=== PATIENT | female | born 1985 | race Caucasian/White ===

== ENCOUNTER 2017-03-07 22:10 | Inpatient (IN) | payer OTHER ==
[2017-03-07 23:11] LABS: BASOPHIL 0.4 % (0-2.0); EOSINOPHIL 0.3 % (0-4.5); MCH 31.2 pg (25.7-33.7); MCHC 33.8 g/dl (32.0-36.0); MEAN CELL VOLUME 92.6 fl (80-96); MEAN PLT VOLUME 10.2 fl (7.5-11.1); NEUTROPHILS 75.1 % (42.8-82.8); PLATELET COUNT 156 K/MM3 (134-434); RDW 15.3 % (11.6-15.6); WHITE BLOOD COUNT 9.8 K/mm3 (4.0-10.0)
[2017-03-07 23:17] VITALS: BMI 29.1
--- NOTE | 2017-03-07 23:21 | HP ---
Past Medical History - Admission Chief Complaint: Labor pain History of Present Illness: 31 yo @ 39 weeks gestation, EDC 03/10/17, presents to L&D c/o labor pain. She denies any vaginal bleeding nor rupture of membrane. History Source: Patient Limitations to Obtaining History: No Limitations - Past Medical History ...Para: 1 ...EDC by Carmen: 03/10/17 - Past Surgical History Past Surgical History: Yes: None Hx Myomectomy: No Hx Transabdominal Cerclage: No - Smoking History Smoking history: Former smoker Have you smoked in the past 12 months: Yes Aproximately how many cigarettes per day: 4 - Alcohol/Substance Use Hx Alcohol Use: No - Social History Usual Living Arrangement: Yes: With Spouse History of Recent Travel: No Home Medications - Allergies Allergies/Adverse Reactions: Allergies Allergy/AdvReac Type Severity Reaction Status Date / Time No Known Allergies Allergy Verified 07/12/16 16:26 - Home Medications Home Medications: Ambulatory Orders Ibuprofen [Motrin -] 600 mg PO TID PRN #21 tablet 07/06/16 Nitrofurantoin Monohyd/M-Cryst [Macrobid -] 100 mg PO BID #14 capsule 07/12/16 Family Disease History - Family Disease History Family History: Unremarkable Review of Systems - Review of Systems Constitutional: reports: No Symptoms Eyes: reports: No Symptoms HENT: reports: No Symptoms Neck: reports: No Symptoms Cardiovascular: reports: No Symptoms Respiratory: reports: No Symptoms Gastrointestinal: reports: No Symptoms Genitourinary: reports: Pain Breasts: reports: No Symptoms Reported Musculoskeletal: reports: No Symptoms Integumentary: reports: No Symptoms Neurological: reports: No Symptoms Endocrine: reports: No Symptoms Hematology/Lymphatic: reports: No Symptoms Psychiatric: reports: No Symptoms Pain Intensity: 8 Physical Exam - Maternity Vital Signs: Vital Signs Temperature Pulse Rate 82 03/07/17 23:00 Respiratory Rate 20 03/07/17 23:00 Blood Pressure 142/81 03/07/17 23:00 O2 Sat by Pulse Oximetry (%) Constitutional: Yes: Well Nourished Eyes: Yes: Conjunctiva Clear HENT: Yes: Atraumatic Neck: Yes: Supple, Trachea Midline Cardiovascular: Yes: Regular Rate and Rhythm Lungs: Clear to auscultation - Abdominal Exam/OB Number of Fetuses: Single Presentation: Vertex - Vaginal Exam/OB Dilatation (cm): 4 Effacement (%): 80 Station: -2 - Physical Exam ...Motor Strength: WNL Psychiatric: Yes: Alert, Oriented Problem List - Problems (1) Pain during labor Code(s): O99.89 - OTH DISEASES AND CONDITIONS COMPL PREG/CHLDBRTH R52 - PAIN, UNSPECIFIED Assessment/Plan Active labor IUP @ term Admit to L&D Anticipate
[2017-03-07 23:31] LABS: ACTIVATED PTT 26.9 SECONDS (26.9-34.4)
[2017-03-07] MEDS: ELECTROLYTE-148 SOLN 1,000 ML IV SCH (23:45)
[2017-03-07 23:48] LABS: ANION GAP 13 (8-16); CALCIUM 9.3 mg/dL (8.5-10.1); CO2 20 mmol/L (21-32); CREATININE 0.9 mg/dL (0.55-1.02); GLUCOSE,RANDOM 88 mg/dL (74-106)
[2017-03-08] MEDS: FENTANYL/BUPIVACAINE/NS/PF - PCEA - 50 ML DISP.SYRIN EP SCH (01:00)
[2017-03-08] MEDS ORDERED: WITCH HAZEL 50% (TUCKS) 40 PAD/JAR PAD TP PRN (03:46)
[2017-03-08] MEDS ORDERED: BENZOCAINE 20% 57 GM BOTTLE TP PRN (03:46)
[2017-03-08] MEDS ORDERED: BISACODYL 10 MG SUPP.RECT RC PRN (03:46)
[2017-03-08] MEDS ORDERED: BENZOCAINE 28 GM HEMORRHOIDAL OINTMENT TP PRN (03:46)
[2017-03-08] MEDS ORDERED: METHYLERGONOVINE MALEATE 0.2 MG/1 ML AMP IM PRN (03:46)
--- NOTE | 2017-03-08 03:48 | PN ---
Delivery - Delivery Vaginal Delivery: Spontaneous Type of Anesthesia: Epidural Episiotomy/Laceration: None EBL (cc): 300 Delivery, Single - Feeding Plan Initial Plan: Elected not to breastfeed exclusively throughout hospitalization Remarks - Remarks Remarks: Normal spontaneous vaginal delivery of a live infant boy over intact perineum. Nose / oropharynx suction @ perineum. Cord clamped and cut Placenta expelled spontaneously intact
--- NOTE | 2017-03-08 03:51 | DS ---
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: Vital Signs Temperature 98.2 F 03/08/17 02:00 Pulse Rate 90 03/08/17 01:30 Respiratory Rate 20 03/08/17 01:30 Blood Pressure 108/70 03/08/17 01:30 O2 Sat by Pulse Oximetry (%) 99 03/08/17 01:30 Constitutional: Yes: Well Nourished Eyes: Yes: Conjunctiva Clear HENT: Yes: Atraumatic Neck: Yes: Supple, Trachea Midline Cardiovascular: Yes: Regular Rate and Rhythm Respiratory: Yes: Regular, CTA Bilaterally Gastrointestinal: Yes: Normal Bowel Sounds Vaginal Exam: Yes: Bleeding Cervix: Yes: Normal Uterus: Yes: Firm ....Post : Yes: Uterus firm, Moderate lochia serosa Neurological: Yes: Alert, Oriented ...Motor Strength: WNL Psychiatric: Yes: Alert, Oriented Labs: CBC, BMP 03/07/17 22:50 03/07/17 22:50 Delivery - Delivery Vaginal Delivery: Spontaneous Type of Anesthesia: Epidural Episiotomy/Laceration: None EBL (cc): 300 Delivery, Single - [place] Feeding Plan Initial Plan: Elected not to breastfeed exclusively throughout hospitalization Discharge Summary Reason For Visit: LABOR ADMIT Current Active Problems History of vaginal delivery (Acute) Pain during labor (Acute) Status post normal vaginal delivery (Acute) Procedures: Principal: Normal spontaneous vaginal delivery Hospital Course: Routine care Condition: Good - Instructions Diet, Activity, Other Instructions: Regular diet No douching, no sexual intercourse x 6 weeks F/U in clinic in 6 weeks Disposition: HOME - Home Medications Comprehensive Discharge Medication List: Ambulatory Orders Ibuprofen [Motrin -] 600 mg PO TID PRN #21 tablet 07/06/16 Nitrofurantoin Monohyd/M-Cryst [Macrobid -] 100 mg PO BID #14 capsule 07/12/16
[2017-03-08] MEDS: D5W-LR W/ 20 UNITS OXYTOCIN 1,000 ML IV SCH (04:00)
[2017-03-08] MEDS: ACETAMINOPHEN 325 MG TABLET (FP) PO PRN ×2 (06:25→20:48)
[2017-03-08] MEDS: IBUPROFEN 600 MG TABLET (FP) PO PRN ×2 (06:25→20:47)
[2017-03-08] MEDS: FERROUS SO4 325 MG TABLET (FP) PO SCH ×3 (09:21→17:00)
[2017-03-08] MEDS: PRENATAL VITAMINS W/ FOLIC ACID TABLET (FP) PO SCH (09:21)
[2017-03-09] MEDS: ACETAMINOPHEN 325 MG TABLET (FP) PO PRN ×3 (00:47→16:21)
[2017-03-09] MEDS: IBUPROFEN 600 MG TABLET (FP) PO PRN ×3 (00:48→16:21)
[2017-03-09 07:16] LABS: BASOPHIL 0.5 % (0-2.0); MCH 31.8 pg (25.7-33.7); MCHC 33.5 g/dl (32.0-36.0); MEAN CELL VOLUME 94.9 fl (80-96); MEAN PLT VOLUME 9.8 fl (7.5-11.1); NEUTROPHILS 60.6 % (42.8-82.8); PLATELET COUNT 148 K/MM3 (134-434); RDW 15.7 % (11.6-15.6); WHITE BLOOD COUNT 8.6 K/mm3 (4.0-10.0)
[2017-03-09] MEDS: D5W-LR W/ 20 UNITS OXYTOCIN 1,000 ML IV SCH (09:10)
[2017-03-09] MEDS: FERROUS SO4 325 MG TABLET (FP) PO SCH ×3 (09:11→17:28)
[2017-03-09] MEDS: PRENATAL VITAMINS W/ FOLIC ACID TABLET (FP) PO SCH (09:11)
--- NOTE | 2017-03-09 10:06 | PN ---
Post Progress Note - Subjective Subjective: 31 YO Para 2, status post , seen and evaluated. Doing well Post Day: 1 Type of Delivery: Vital Signs: Vital Signs Temperature 98.8 F 03/08/17 20:51 Pulse Rate 83 03/08/17 20:51 Respiratory Rate 20 03/08/17 20:51 Blood Pressure 114/73 03/08/17 20:51 O2 Sat by Pulse Oximetry (%) 100 03/08/17 03:15 Breast Exam: Yes: Soft Uterus: Yes: Fundus Firm Abdomen/GI: Yes: Abdomen soft, Tolerating PO Lochia: Yes: Rubra Lochia, amount: Moderate Extremities: Yes: Calves non-tender Activity: Ambulating - Labs Labs: CBC WBC 8.6 K/mm3 (4.0-10.0) 03/09/17 06:45 RBC 4.00 M/mm3 (3.60-5.2) 03/09/17 06:45 Hgb 12.7 GM/dL (10.7-15.3) 03/09/17 06:45 Hct 38.0 % (32.4-45.2) 03/09/17 06:45 MCV 94.9 fl (80-96) 03/09/17 06:45 MCH 31.8 pg (25.7-33.7) 03/09/17 06:45 MCHC 33.5 g/dl (32.0-36.0) 03/09/17 06:45 RDW 15.7 % (11.6-15.6) H 03/09/17 06:45 Plt Count 148 K/MM3 (134-434) 03/09/17 06:45 MPV 9.8 fl (7.5-11.1) 03/09/17 06:45 Neutrophils % 60.6 % (42.8-82.8) 03/09/17 06:45 Lymphocytes % 30.9 % (8-40) D 03/09/17 06:45 Monocytes % 7.0 % (3.8-10.2) 03/09/17 06:45 Eosinophils % 1.0 % (0-4.5) D 03/09/17 06:45 Basophils % 0.5 % (0-2.0) 03/09/17 06:45 Problem List - Problems (1) Pain during labor Code(s): O99.89 - OTH DISEASES AND CONDITIONS COMPL PREG/CHLDBRTH R52 - PAIN, UNSPECIFIED Assessment/Plan Status post Stable Continue care
[2017-03-09] MEDS: ELECTROLYTE-148 SOLN 1,000 ML IV SCH (12:27)
[2017-03-09] MEDS: FENTANYL/BUPIVACAINE/NS/PF - PCEA - 50 ML DISP.SYRIN EP SCH (21:04)
[2017-03-09] MEDS ORDERED: SENNOSIDES/DOCUSATE COMBO (SENNA PLUS) TABLET (UD) PO PRN (22:00)
[2017-03-10] MEDS: IBUPROFEN 600 MG TABLET (FP) PO PRN (02:47)
[2017-03-10] MEDS: ACETAMINOPHEN 325 MG TABLET (FP) PO PRN (02:48)
--- NOTE | 2017-03-10 07:32 | PN ---
Post Progress Note - Subjective Subjective: doing well, no issues or complaints Post Day: 2 Type of Delivery: Vital Signs: Vital Signs Temperature 98.1 F 03/09/17 22:00 Pulse Rate 66 03/09/17 22:00 Respiratory Rate 18 03/09/17 22:00 Blood Pressure 108/63 03/09/17 22:00 O2 Sat by Pulse Oximetry (%) 100 03/08/17 03:15 Breast Exam: Yes: Soft Uterus: Yes: Fundus Firm Abdomen/GI: Yes: Abdomen soft Lochia: Yes: Rubra Lochia, amount: Small Extremities: Yes: Calves non-tender - Labs Labs: CBC WBC 8.6 K/mm3 (4.0-10.0) 03/09/17 06:45 RBC 4.00 M/mm3 (3.60-5.2) 03/09/17 06:45 Hgb 12.7 GM/dL (10.7-15.3) 03/09/17 06:45 Hct 38.0 % (32.4-45.2) 03/09/17 06:45 MCV 94.9 fl (80-96) 03/09/17 06:45 MCH 31.8 pg (25.7-33.7) 03/09/17 06:45 MCHC 33.5 g/dl (32.0-36.0) 03/09/17 06:45 RDW 15.7 % (11.6-15.6) H 03/09/17 06:45 Plt Count 148 K/MM3 (134-434) 03/09/17 06:45 MPV 9.8 fl (7.5-11.1) 03/09/17 06:45 Neutrophils % 60.6 % (42.8-82.8) 03/09/17 06:45 Lymphocytes % 30.9 % (8-40) D 03/09/17 06:45 Monocytes % 7.0 % (3.8-10.2) 03/09/17 06:45 Eosinophils % 1.0 % (0-4.5) D 03/09/17 06:45 Basophils % 0.5 % (0-2.0) 03/09/17 06:45 Assessment/Plan doing well continue care dc home
[2017-03-10 08:55] VITALS: BP 117/73; PULSE 73; TEMP 98.4
[2017-03-10] MEDS: FERROUS SO4 325 MG TABLET (FP) PO SCH (09:21)
[2017-03-10] MEDS: PRENATAL VITAMINS W/ FOLIC ACID TABLET (FP) PO SCH (09:21)
== END 2017-03-10 13:00 | disposition home or self-care (01) | DRG 560 ==
LOC: JLDR 22:10 → J3W 03-08 04:58
PROVIDERS: ADMIT Obstetrics & Gynecology; ATTEND Obstetrics & Gynecology
PROC: 10E0XZZ Delivery of Products of Conception, External Approach (ICD-10-PCS; principal; 2017-03-08)
DX: O80 Encounter for full-term uncomplicated delivery (principal); Z3A.39 39 weeks gestation of pregnancy; Z37.0 Single live birth
CPT/HCPCS: 36415; 59409; 80048; 85025; 85610; 85730; 86593; 86850; 86900; 86901

== ENCOUNTER 2017-10-17 19:47 | Emergency (ER) | payer OTHER ==
[2017-10-17 20:15] VITALS: BP 116/85; PULSE 82; TEMP 97.9; BMI 28.3
[2017-10-17] MEDS ORDERED: BACITRACIN 15 GM TUBE TOPICAL OINTMENT ONE (20:41)
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
== END 2017-10-17 21:09 | disposition home or self-care (01) ==
LOC: JERFT 19:47
PROC: 2W2FX4Z Dressing of Left Hand using Bandage (ICD-10-PCS; principal; 2017-10-17)
DX: T23.252A Burn of second degree of left palm, initial encounter (principal); T22.111A Burn of first degree of right forearm, initial encounter; T31.0 Burns involving less than 10% of body surface; X13.1XXA Other contact with steam and other hot vapors, initial encounter; Y93.G3 Activity, cooking and baking; Y92.000 Kitchen of unspecified non-institutional (private) residence as the place of occurrence of the external cause
CPT/HCPCS: 99281-25

== ENCOUNTER 2018-07-22 13:57 | Emergency (ER) | payer OTHER ==
[2018-07-22 14:30] VITALS: BP 114/55; PULSE 84; TEMP 98.3; BMI 25.7
--- NOTE | 2018-07-22 14:31 | PDOC ---
Rapid Medical Evaluation Time Seen by Provider: 07/22/18 14:27 Medical Evaluation: Allergies Allergy/AdvReac Type Severity Reaction Status Date / Time No Known Allergies Allergy Verified 02/02/18 17:07 I have performed a brief in-person evaluation of this patient. The patient presents with a chief complaint of: throat feels funny since last night. states "my boyfriend is in the ER so I figured i'd get checked out" Pertinent physical exam findings: none. Patient appears well. afebrile. no tonsilar erythema, edema or exudate I have ordered the following: none The patient will proceed to the ED for further evaluation. Discharge Disposition - Diagnosis Sore throat - Referrals - Patient Instructions - Post Discharge Activity
--- NOTE | 2018-07-22 15:37 | PDOC ---
History of Present Illness - General Chief Complaint: Cold Symptoms Stated Complaint: COUGH Time Seen by Provider: 07/22/18 14:27 History Source: Patient Exam Limitations: No Limitations - History of Present Illness Initial Comments: 07/22/18 15:23 HISTORY OF PRESENT ILLNESS: This is a 32-year-old woman denies medical history presents emergency department for evaluation of sore throat for 3-4 days. Patient reports multiple sick contacts including her son and boyfriend. The son was recently diagnosed with bronchitis and the boyfriend is here for evaluation at this time. No recent travel or sick contacts. PAST MEDICAL HISTORY: Denies past medical history SURGICAL HISTORY: Denies ALLERGIES: No known drug allergies Tobacco: 2-3 cigarettes every few days prn ETOH:Social Illicits: denies REVIEW OF SYSTEMS General/Constitutional: Denies fever or chills. Denies weakness, weight change. HEENT: Denies change in vision. Denies ear pain or discharge. +sore throat. Cardiovascular: Denies chest pain or shortness of breath. Respiratory: Dry cough. Denies wheezing, or hemoptysis. Gastrointestinal: Denies nausea, vomiting, diarrhea or constipation. Denies rectal bleeding. Genitourinary: Denies dysuria, frequency, or change in urination. Musculoskeletal: Denies joint or muscle swelling or pain. Denies neck or back pain. Skin and breasts: Denies rash or easy bruising. Neurologic: Denies headache, vertigo, loss of consciousness, or loss of sensation. Psychiatric: Denies depression or anxiety. Endocrine: Denies increased thirst. Denies abnormal weight change. Hematologic/Lymphatic: Denies anemia, easy bleeding, or history of blood clots. Allergic/Immunologic: Denies hives or skin allergy. Denies latex allergy. PHYSICAL EXAM General Appearance: Well-appearing, appropriately dressed. No apparent distress , no intoxication. HEENT: EOMI, PERRLA, normal ENT inspection, normal voice, TMs normal. No conjunctival pallor. No photophobia, scleral icterus. OP erythematous withou lesions or exudate. Neck: Supple. Trachea midline. No tenderness, rigidity, carotid bruit, stridor , lymphadenopathy, or thyromegaly. Respiratory/Chest: Lungs CTAB. No shortness of breath, chest tenderness, respiratory distress, accessory muscle use. No crackles, rales, rhonchi, stridor , wheezing, dullness Cardiovascular: RRR. S1, S2. No JVD, murmur, bradycardia, tachycardia. Vascular Pulses: Dorsalis-Pedis (R): 2+, Dorsalis-Pedis (L): 2+ Gastrointestinal/Abdominal: Normal bowel sounds. Abdomen soft, non-distended. No tenderness or rebound tenderness. No organomegaly, pulsatile mass, guarding, hernia, hepatomegaly, splenomegaly. Lymphatic: No adenopathy, tenderness. Musculoskeletal/Extremities: Normal inspection. FROM of all extremities, normal capillary refill. Pelvis Stable. No CVA tenderness. No tenderness to extremities, pedal edema, swelling, erythema or deformity. Integumentary: Appropriate color, dry, warm. 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 Fully oriented, alert. Appropriate mood/affect. Motor strength 5/5. No appreciable EOM palsy, facial droop or sensory deficit. Past History - Past Medical History Allergies/Adverse Reactions: Allergies Allergy/AdvReac Type Severity Reaction Status Date / Time No Known Allergies Allergy Verified 07/22/18 14:32 Home Medications: Ambulatory Orders Cetirizine HCl [Zyrtec -] 10 mg PO DAILY #30 tablet 02/02/18 Fluticasone Prop 0.05% Nasal [Flonase -] 1 - 2 spray NS DAILY #1 spray.pump Ibuprofen 800 mg PO TID #30 tablet 02/02/18 Asthma: No Cancer: No Cardiac Disorders: No COPD: No Diabetes: No HTN: No Seizures: No Thyroid Disease: No - Reproductive History (#): 1 Para: 0 Cervical CA: No Dysfunctional Uterine Bleeding: No Ectopic : No Endometrial CA: No Polycystic Ovaries: No Therapeutic (s) & number: No Tubal Ligation: No Spontaneous : 0 - Suicide/Smoking/Psychosocial Hx Smoking Status: Yes Smoking History: Current some day smoker Have you smoked in the past 12 months: Yes Number of Cigarettes Smoked Daily: 1 Information on smoking cessation initiated: Yes 'Breaking Loose' booklet given: 07/06/16 Hx Alcohol Use: No Drug/Substance Use Hx: No Substance Use Type: Alcohol Hx Substance Use Treatment: No *Physical Exam - Vital Signs Last Vital Signs Temp Pulse Resp BP Pulse Ox 98.3 F 84 18 114/55 L 100 07/22/18 14:28 07/22/18 14:28 07/22/18 14:28 07/22/18 14:28 07/22/18 14:28 Moderate Sedation - Procedure Monitoring Vital Signs: Procedure Monitoring Vital Signs Temperature 98.3 F 07/22/18 14:28 Pulse Rate 84 07/22/18 14:28 Respiratory Rate 18 07/22/18 14:28 Blood Pressure 114/55 L 07/22/18 14:28 O2 Sat by Pulse Oximetry (%) 100 07/22/18 14:28 Medical Decision Making - Medical Decision Making 07/22/18 15:26 A/P: 32-year-old woman with 4 days of sore throat Oropharynx erythematous without lesions or exudate TMs within normal limits bilaterally Lungs clear to auscultation bilaterally Symptoms are consistent with viral pharyngitis. I will discharge patient home to follow-up to primary doctor as needed. Symptomatic treatment is been discussed with the patient was verbalizes understanding of discharge instructions. Additionally patient reports to smoking 2-3 cigarettes every couple of days. Smoking cessation counseling is provided to the patient refuses any intervention at this time. I discussed the physical exam findings, ancillary test results and final diagnoses with the patient. I answered all of the patient's questions. The patient was satisfied with the care received and felt comfortable with the discharge plan and treatment plan. The patient will call their primary care physician within 24 hours to arrange follow-up and will return to the Emergency Department with any new, persistent or worsening symptoms. *DC/Admit/Observation/Transfer Diagnosis at time of Disposition: Encounter for smoking cessation counseling Acute pharyngitis Qualifiers: Pharyngitis/tonsillitis etiology: unspecified etiology Qualified Code(s): J02.9 - Acute pharyngitis, unspecified - Discharge Dispostion Disposition: HOME Condition at time of disposition: Stable Decision to Admit order: No - Referrals - Patient Instructions Printed Discharge Instructions: DI for Viral Upper Respiratory Infection -- Adult Additional Instructions: Rest, drink lots of fluids: Teas, water, soups, Pedialyte Saltwater gargles Steamy showers/seem to face break up mucus Avoid contact with others until fevers and cough resolved Lots of handwashing and good hygiene Avoid tobacco use. Continue [id number] medications for symptomatic relief Tylenol or Motrin for fever and pain Followup with private physician in one to 2 days as needed Return to emergency department for worsened symptoms, fevers, dehydration - Post Discharge Activity
== END 2018-07-22 15:30 | disposition home or self-care (01) ==
LOC: JERFT 13:57
DX: J02.9 Acute pharyngitis, unspecified (principal); F17.210 Nicotine dependence, cigarettes, uncomplicated
CPT/HCPCS: 99281-25

== ENCOUNTER 2022-09-26 14:13 | Emergency (ER) | payer BC ==
[2022-09-26 14:46] VITALS: BP 113/73; PULSE 79; RESP 20; TEMP 98; BMI 25.7
[2022-09-26 16:17] LABS: THROAT:GRP A STREP NOT DETECTED (NOTDETECTED)
== END 2022-09-26 16:33 | disposition home or self-care (01) ==
LOC: JERFT 14:13
DX: Z20.818 Contact with and (suspected) exposure to other bacterial communicable diseases (principal)
CPT/HCPCS: 0241U-QW; 87651; 99283-25